=== PATIENT | female | born 1980 | race Caucasian/White ===

== ENCOUNTER 2019-11-06 05:30 | Day surgery (SDC) | payer OTHER, BC ==
[~2019-11-06] VITALS: Ht 152.4 cm; Wt 112.4 kg
[~2019-11-06 05:30] MED LIST: None at This Time
[2019-11-06 06:18] VITALS: BP 127/84
[2019-11-06] MEDS: LACTATED RINGERS 1,000 ML IV SCH ×2 (06:46→06:47)
[2019-11-06] MEDS ORDERED: BUPIVACAINE/PF 0.5% ONE (06:57)
[2019-11-06] MEDS ORDERED: EPINEPHRINE 1 MG/ML, 1ML ONE (06:57)
[2019-11-06] MEDS ORDERED: SCOPOLAMINE PATCH, 1.5MG PATCH.TD72 TD ONE (07:24)
[2019-11-06] MEDS ORDERED: FENTANYL PF 250 MCG/5ML ONE (07:26)
[2019-11-06] MEDS ORDERED: MIDAZOLAM 1 MG/ML, 2ML ONE (07:26)
[2019-11-06] MEDS ORDERED: LABETALOL 5 MG/ML SYR. (IV ONLY) IV PRN (07:30)
[2019-11-06] MEDS ORDERED: PROMETHAZINE 25 MG/ML, 1ML IV PRN (07:30)
[2019-11-06] MEDS ORDERED: ACETAMINOPHEN 500 MG TABLET PO ONE (07:30)
[2019-11-06] MEDS ORDERED: MEPERIDINE/PF 25MG/ML,1ML IVPush PRN (07:30)
[2019-11-06] MEDS ORDERED: GABAPENTIN 300 MG CAPSULE PO ONE (07:30)
[2019-11-06] MEDS ORDERED: hydrALAzine 20 MG/ML, 1ML IV PRN (07:30)
[2019-11-06] MEDS ORDERED: HALOPERIDOL 5 MG/ML IV PRN (07:30)
[2019-11-06] MEDS ORDERED: OXYcodone 5 MG/5 ML ORAL.SOL UDC PO PRN (07:30)
[2019-11-06] MEDS ORDERED: HYDROmorphone 2 MG/ML, 1ML IVPush PRN (07:30)
[2019-11-06] MEDS ORDERED: FENTANYL PF 100 MCG/2ML IV PRN (07:30)
[2019-11-06] MEDS ORDERED: ALBUTEROL SULFATE 200 PUFFS/8.5 GR INH ONE (07:32)
[2019-11-06 07:36] LABS: HCG UR SG 1.023 (1.003-1.030)
[2019-11-06] MEDS ORDERED: DEXAMETHASONE 4 MG/ML, 1ML ONE (08:57)
[2019-11-06] MEDS ORDERED: PROPOFOL 10 MG/ML, 20ML ONE (08:57)
[2019-11-06] MEDS ORDERED: NEOSTIGMINE 1 MG/ML, 10ML ONE (08:57)
[2019-11-06] MEDS ORDERED: CEFAZOLIN 1,000 MG ONE (08:57)
[2019-11-06] MEDS ORDERED: ROCURONIUM 10MG/ML,5ML ONE (08:57)
[2019-11-06] MEDS ORDERED: ONDANSETRON 2MG/ML, 2ML ONE (08:57)
[2019-11-06] MEDS ORDERED: SUCCINYLCHOLINE 20 MG/ML, 10ML ONE (08:57)
[2019-11-06] MEDS ORDERED: GLYCOPYRROLATE 0.2MG/1ML, 5ML ONE (08:57)
[2019-11-06] MEDS ORDERED: PROMETHAZINE 25 MG/ML, 1ML ONE (09:11)
[2019-11-06] MEDS ORDERED: METHOCARBAMOL 1,000 MG in DEXTROSE 5% 100 ML IV ONE (09:30)
[2019-11-06] MEDS ORDERED: FENTANYL PF 100 MCG/2ML ONE (09:40)
== END 2019-11-06 13:00 | disposition home or self-care (01) ==
LOC: OUT 05:30
PROVIDERS: ATTEND Surgery
DX: K42.0 Umbilical hernia with obstruction, without gangrene (principal); E66.01 Morbid (severe) obesity due to excess calories; G62.9 Polyneuropathy, unspecified; Z68.42 Body mass index [BMI] 45.0-49.9, adult; Z88.8 Allergy status to other drugs, medicaments and biological substances; Z98.890 Other specified postprocedural states
CPT/HCPCS: 49653; 81025; C1781; J0171; J0330; J0690; J1100; J2250; J2405; J2550; J2704; J2710; J2800; J3010; J7120; S2900